=== PATIENT | female | born 1955 | race Caucasian/White ===

== ENCOUNTER 2019-05-06 14:50 | Inpatient (IN) | payer OTHER ==
[2019-05-06 15:40] LABS: MEAN PLT VOLUME 8.8 fl (7.5-11.1)
[2019-05-06 15:42] LABS: BASO % 0.8 % (0-2.0); EOS % 1.8 % (0-4.5); HEMATOCRIT 44.9 % (32.4-45.2); HEMOGLOBIN 15.1 GM/dl (10.7-15.3); LYMPH % 27.2 % (8-40); MCH 31.4 pg (25.7-33.7); MCHC 33.7 g/dl (32.0-36.0); MEAN CELL VOLUME 93.2 fl (80-96); MONO % 5.9 % (3.8-10.2); NEUT % 64.3 % (42.8-82.8); PLATELET COUNT 298 K/MM3 (134-434); RBC 4.81 M/mm3 (3.60-5.2); WHITE BLOOD COUNT 8.4 K/mm3 (4.0-10.8)
[2019-05-06 15:57] LABS: EPITHELIAL CELLS RARE /hpf
[2019-05-06 16:00] LABS: ALBUMIN 4.9 g/dl (3.4-5.0); BILIRUBIN,TOTAL 0.4 mg/dl (0.2-1); CALCIUM 9.6 mg/dl (8.5-10); TOT PROT 8.2 g/dl (6.4-8.2)
[2019-05-06] MEDS ORDERED: MAG HYDROX/AL HYDROX/SIMETH 30 ML UNIT-DOSE CUP PO ONE (16:01)
[2019-05-06] MEDS ORDERED: FAMOTIDINE 20 MG/50 ML IVPB 20 MG/50 ML MG IVPB ONE ×2 (16:01→16:02)
[2019-05-06] MEDS ORDERED: MAG HYDROX/AL HYDROX/SIMETH 30 ML UNIT-DOSE CUP ONE (16:02)
[2019-05-06] MEDS ORDERED: ASPIRIN 81 MG CHEWABLE TABLETS PO ONE (16:29)
[2019-05-06] MEDS ORDERED: NITROGLYCERIN SUBLINGUAL 1/150 0.4 MG TAB SL ONE (16:30)
[2019-05-06] MEDS ORDERED: NITROGLYCERIN SUBLINGUAL 1/150 0.4 MG TAB ONE (16:32)
[2019-05-06] MEDS ORDERED: ASPIRIN 81 MG CHEWABLE TABLETS ONE (16:32)
[2019-05-06] MEDS ORDERED: NITROGLYCERIN 2% OINTMENT - 1GM PACKET TD ONE ×3 (16:36→22:33)
[2019-05-06] MEDS ORDERED: ONDANSETRON 4 MG/2 ML VIAL IVPUSH PRN (16:51)
[2019-05-06] MEDS ORDERED: ACETAMINOPHEN 325 MG TABLET (FP) PO PRN (16:51)
--- NOTE | 2019-05-06 16:53 | PDOC ---
Documentation entered by Suellen Arvizu SCRIBE, acting as scribe for Caden Tse MD. Caden Tse MD: This documentation has been prepared by the Luh medina Xhesika, SCRIBE, under my direction and personally reviewed by me in its entirety. I confirm that the documentation accurately reflects all work, treatment, procedures, and medical decision making performed by me. 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 The patient states her son came over to make amends with her, she got upset, started crying hard and suddenly felt chest pain. Pt notes her pain is persistent, substernal, nonradiating but painful to touch. Patient notes she looked at her fitbit and her HR was initially in the 90s and went up to 130s. Pt notes she had stress test and echocardiogram 2 years ago at her cardiologists office (does not recall name) because she was having palpitations , however, the results came back normal. Pt reports heart disease runs in the family, mother had a triple bypass and stroke. Pt notes she took 2 Motrin at 12pm because she was achy from her fibromyalgia. The patient denies shortness of breath, headache and dizziness. Denies fever, chills, cough, nausea, vomiting, diarrhea and constipation. Denies dysuria, frequency, urgency and hematuria. Allergies: clindamycin, doxycycline, penicillins, sulfamethoxazole, trimethoprim Past History - Past Medical History Allergies/Adverse Reactions: Allergies Allergy/AdvReac Type Severity Reaction Status Date / Time clindamycin Allergy Verified 05/06/19 14:51 doxycycline Allergy Verified 05/06/19 14:51 Penicillins Allergy Verified 05/06/19 14:51 sulfamethoxazole Allergy Verified 05/06/19 14:51 [From Bactrim] trimethoprim [From Bactrim] Allergy Verified 05/06/19 14:51 Home Medications: Ambulatory Orders Amitriptyline HCl 10 mg PO DAILY tablet 02/28/14 Levothyroxine Sodium 88 mcg PO DAILY tablet 02/28/14 Simvastatin 40 mg PO DAILY tablet 02/28/14 Review of Systems - Review of Systems Able to Perform ROS?: Yes Comments:: 05/06/19 15:24 GENERAL/CONSTITUTIONAL: No fever or chills. No weakness. HEAD, EYES, EARS, NOSE AND THROAT: No change in vision. No ear pain or discharge. No sore throat. CARDIOVASCULAR: + chest pain. No shortness of breath. RESPIRATORY: No cough, wheezing, or hemoptysis. GASTROINTESTINAL: No nausea, vomiting, diarrhea or constipation. GENITOURINARY: No dysuria, frequency, or change in urination. MUSCULOSKELETAL: No joint or muscle swelling or pain. No neck or back pain. SKIN: No rash NEUROLOGIC: No headache, vertigo, loss of consciousness, or change in strength/ sensation. ENDOCRINE: No increased thirst. No abnormal weight change. HEMATOLOGIC/LYMPHATIC: No anemia, easy bleeding, or history of blood clots. ALLERGIC/IMMUNOLOGIC: No hives or skin allergy. *Physical Exam - Vital Signs Last Vital Signs Temp Pulse Resp BP Pulse Ox 98.5 F 99 H 18 137/99 99 05/06/19 14:50 05/06/19 16:08 05/06/19 16:08 05/06/19 16:08 05/06/19 16:08 - Physical Exam Comments: 05/06/19 15:24 GENERAL: Awake, alert, and fully oriented, in no acute distress HEAD: No signs of trauma EYES: PERRLA, EOMI, sclera anicteric, conjunctiva clear ENT: Auricles normal inspection, hearing grossly normal, nares patent, oropharynx clear without exudates. Moist mucosa NECK: Normal ROM, supple, no lymphadenopathy, JVD, or masses LUNGS: Breath sounds equal, clear to auscultation bilaterally. No wheezes, and no crackles HEART: +regular tachycardia at 110 bpm and HR 170/111. No murmurs, rubs or gallops ABDOMEN: Soft, nontender, normoactive bowel sounds. No guarding, no rebound. No masses EXTREMITIES: Normal range of motion, no edema. No clubbing or cyanosis. No cords, erythema, or tenderness NEUROLOGICAL: Cranial nerves II through XII grossly intact. Normal speech, normal gait SKIN: Warm, Dry, normal turgor, no rashes or lesions noted. ED Treatment Course - LABORATORY CBC & Chemistry Diagram: 05/06/19 15:32 05/06/19 15:32 - ADDITIONAL ORDERS Additional order review: Laboratory Results 05/06/19 05/06/19 05/06/19 15:47 15:32 15:21 Sodium 138 Potassium 4.0 Chloride 103 Carbon Dioxide 25 Anion Gap 10 BUN 10.0 Creatinine 1.0 Est GFR (CKD-EPI)AfAm 68.47 Est GFR (CKD-EPI)NonAf 59.07 Random Glucose 135 H Calcium 9.6 Total Bilirubin 0.4 AST 30 ALT 31 Alkaline Phosphatase 95 Creatine Kinase 98 Troponin I 0.06 H Total Protein 8.2 Albumin 4.9 Urine Color Yellow Urine Appearance Clear Urine pH 7.0 Urine Protein 1+ H Urine Glucose (UA) Negative Urine Ketones Negative Urine Blood 1+ H Urine Nitrite Negative Urine Bilirubin Negative Urine Urobilinogen 0.2 Ur Leukocyte Esterase 1+ Urine RBC 2-5 Urine WBC 2-5 Ur Transition Epith Cell Rare Urine Bacteria Rare 05/06/19 15:32 RBC 4.81 MCV 93.2 MCHC 33.7 RDW 12.0 MPV 8.8 Neutrophils % 64.3 Lymphocytes % 27.2 Monocytes % 5.9 Eosinophils % 1.8 Basophils % 0.8 - RADIOLOGY Radiology Studies Ordered: Category Date Time Status FABIAN [CHEST X-RAY PORTABLE*] [RAD] Stat Radiology 05/06/19 16:42 Ordered - Medications Given in the ED: ED Medications Discontinued Medications Generic Name Dose Route Start Last Admin Trade Name Freq PRN Reason Stop Dose Admin Al Hydroxide/Mg Hydroxide 30 ml 05/06/19 16:01 05/06/19 16:05 Mylanta Oral Suspension - PO 05/06/19 16:02 30 ml ONCE ONE Administration Aspirin 162 mg 05/06/19 16:29 05/06/19 16:35 Asa - PO 05/06/19 16:30 162 mg ONCE ONE Administration Famotidine/Sodium Chloride 20 mg in 50 mls @ 100 mls/hr 05/06/19 16:01 16:09 Pepcid 20 Mg Premixed Ivpb - IVPB 05/06/19 16:30 100 mls/hr ONCE ONE Administration Lorazepam 0.5 mg 05/06/19 16:54 05/06/19 17:07 Ativan - PO 05/06/19 16:55 Not Given ONCE ONE Nitroglycerin 0.4 mg 05/06/19 16:30 05/06/19 16:41 Nitrostat - SL 05/06/19 16:31 Not Given ONCE ONE Nitroglycerin 0.5 inch 05/06/19 16:39 05/06/19 16:40 Nitro-Bid 2% Paste - TD 05/06/19 16:40 0.5 inch ONCE ONE Administration Medical Decision Making - Medical Decision Making 05/06/19 15:18 EKG shows sinus tachycardia 109 bpm. Normal axes and intervals. No ST-T wave changes. Normal EKG except for the slightly elevated heart rate. This is likely due to the patient's anxiety. Since the patient's pain at its onset during a very emotional confrontation with her son, which resulted in her sobbing uncontrollably, it is likely that symptoms are due to anxiety. Also, it is reassuring that she had a normal stress test and echocardiogram approximately 2 years ago. However, cardiac enzymes will check and patient observed. Her pain seems to be resolving. 05/06/19 17:04 Troponin is 0.06, just slightly out of the negative range. Patient refused sublingual nitro. Refused Ativan. Although the patient's pain is much improved after administration of Pepcid and Mylanta, and it may certainly be gastrointestinal in origin, rule out acute coronary syndrome with serial EKGs and enzymes. Admitted to hospitalist service, Dr. Christina. Telemetry. Repeat EKG and enzymes. Close observation. 05/06/19 17:07 Discharge - Discharge Information Problems reviewed: Yes Clinical Impression/Diagnosis: Acute coronary syndrome - Admission Yes - Follow up/Referral Referrals: Marianne Adkins [Primary Care Provider] - - Patient Discharge Instructions - Post Discharge Activity
[2019-05-06] MEDS ORDERED: LORazepam 0.5 MG TABLET PO ONE (16:54)
[2019-05-06] MEDS ORDERED: LORazepam 0.5 MG TABLET ONE (17:01)
--- NOTE | 2019-05-06 19:12 | PDOC ---
*Physical Exam - Vital Signs Last Vital Signs Temp Pulse Resp BP Pulse Ox 98.5 F 104 H 20 137/98 96 05/06/19 14:50 05/06/19 17:30 05/06/19 17:30 05/06/19 17:30 05/06/19 17:30 ED Treatment Course - LABORATORY CBC & Chemistry Diagram: 05/06/19 15:32 05/06/19 15:32 - ADDITIONAL ORDERS Additional order review: Laboratory Results 05/06/19 05/06/19 05/06/19 15:47 15:32 15:21 Sodium 138 Potassium 4.0 Chloride 103 Carbon Dioxide 25 Anion Gap 10 BUN 10.0 Creatinine 1.0 Est GFR (CKD-EPI)AfAm 68.47 Est GFR (CKD-EPI)NonAf 59.07 Random Glucose 135 H Calcium 9.6 Total Bilirubin 0.4 AST 30 ALT 31 Alkaline Phosphatase 95 Creatine Kinase 98 Troponin I 0.06 H Total Protein 8.2 Albumin 4.9 Urine Color Yellow Urine Appearance Clear Urine pH 7.0 Urine Protein 1+ H Urine Glucose (UA) Negative Urine Ketones Negative Urine Blood 1+ H Urine Nitrite Negative Urine Bilirubin Negative Urine Urobilinogen 0.2 Ur Leukocyte Esterase 1+ Urine RBC 2-5 Urine WBC 2-5 Ur Transition Epith Cell Rare Urine Bacteria Rare 05/06/19 15:32 RBC 4.81 MCV 93.2 MCHC 33.7 RDW 12.0 MPV 8.8 Neutrophils % 64.3 Lymphocytes % 27.2 Monocytes % 5.9 Eosinophils % 1.8 Basophils % 0.8 - Medications Given in the ED: ED Medications Discontinued Medications Generic Name Dose Route Start Last Admin Trade Name Elpidio PRN Reason Stop Dose Admin Al Hydroxide/Mg Hydroxide 30 ml 05/06/19 16:01 05/06/19 16:05 Mylanta Oral Suspension - PO 05/06/19 16:02 30 ml ONCE ONE Administration Aspirin 162 mg 05/06/19 16:29 05/06/19 16:35 Asa - PO 05/06/19 16:30 162 mg ONCE ONE Administration Famotidine/Sodium Chloride 20 mg in 50 mls @ 100 mls/hr 05/06/19 16:01 16:09 Pepcid 20 Mg Premixed Ivpb - IVPB 05/06/19 16:30 100 mls/hr ONCE ONE Administration Lorazepam 0.5 mg 05/06/19 16:54 05/06/19 17:07 Ativan - PO 05/06/19 16:55 Not Given ONCE ONE Nitroglycerin 0.4 mg 05/06/19 16:30 05/06/19 16:41 Nitrostat - SL 05/06/19 16:31 Not Given ONCE ONE Nitroglycerin 0.5 inch 05/06/19 16:39 05/06/19 16:40 Nitro-Bid 2% Paste - TD 05/06/19 16:40 0.5 inch ONCE ONE Administration Medical Decision Making - Medical Decision Making 05/06/19 22:00 Care of this patient received from D-dimer sent because of sustained tachycardia to rule out PE (suggested by LINUS Pizarro of [place] Hospitalist service who had seen the patient earlier) D-dimer mildly elevated at 657 ;CT angiogram of chest ordered Repeat troponin (and INR ) drawn at approximately 9:30 PM Repeat troponin is elevated at 3.44 (INR normal at 1.07) Twelve-lead electrocardiogram will be repeated. Twelve-lead electrocardiogram: Sinus tachycardia at 107 bpm; no ST or T wave abnormality seen. Intervals, axis continued to be normal. No cardiac arrhythmia evident Case discussed with acetylene gas compressor on-call, who requests that patient be admitted to telemetry floor at [facility]. 05/07/19 00:05 CT angiogram of the chest is negative for embolus, infiltrate, pleural effusion or pulmonary nodule The patient has explained to me that she is very sensitive to medications: She refused metoprolol because she has not taken it in the past (clinical indications for beta-velasquez after OR explained to the patient prior to her decision). The only statin drug that she can tolerate is simvastatin. Levothyroxine is tolerated only in the brand of Synthroid. The special considerations have been explained to nurse practitioner Gita Monitored beds are not available at [facility]: Dr. Duran recontacted and situation explained to them. He would still much prefer that patient be admitted to [facility] but if no monitored bed is available, patient can be admitted here (likely will not be seen until late afternoon by acetylene gas compressor) 05/07/19 00:19 Patient has taken her own amitriptyline and simvastatin nighttime doses ( brought from home by family) Discharge - Discharge Information Problems reviewed: Yes Clinical Impression/Diagnosis: NSTEMI (non-ST elevated myocardial infarction) - Admission Yes - Follow up/Referral - Patient Discharge Instructions - Post Discharge Activity
[2019-05-06 21:40] LABS: INR 1.07 (0.82-1.09)
[2019-05-06] MEDS ORDERED: ATORVASTATIN CA 20 MG TABLET (FP) PO SCH (22:00)
[2019-05-06] MEDS ORDERED: ATORVASTATIN CA 20 MG TABLET (FP) ONE ×2 (22:33→23:51)
[2019-05-06] MEDS ORDERED: METOPROLOL TARTRATE 50 MG TABLET (FP) ONE (22:33)
[2019-05-06] MEDS ORDERED: ENOXAPARIN NA (PORCINE) 60 MG/0.6 ML DISP.SYRIN SQ ONE (22:34)
--- NOTE | 2019-05-06 22:53 | HP ---
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 She reports she was crying as she was speaking to her son about past issues at the time the chest pain occurred. She denies radiation of chest pain to her left arm, shoulder, neck or jaw, nausea, vomiting,diaphoresis or shortness of breath. Chest pain is nonreproducible on palpation. She was given topical nitropaste and she reported some relief. Currently she continues to report chest discomfort which has improved and rating 5/10 in intensity. Patient has a positive cardiac family history and she is a former smoker. ER course was notable for: (1) Elevated troponin- 0.06 followed by 3.44, ekg w/ no signs of acute ischemia , no acute ST elevations, consistent with NSTEMI (2) Tachycardia, D-Dimer elevated, CTA of chest completed and pending results (3) Abnormal UA- 1+ leukoesterase, 1+ blood, WBC 2-5 Recent Travel: denies PAST MEDICAL HISTORY: hyperlipidemia fibromylagia hypothyroidism PAST SURGICAL HISTORY: denies Social History: Smoking:former smoker, smoked for about 10 years in her earlier years Alcohol:no Drugs:no Family History: Father had SD in his 50's and CABG in his 70's Mother had aneurysm of heart, at age 58 Allergies clindamycin Allergy (Verified 05/06/19 14:51) doxycycline Allergy (Verified 05/06/19 14:51) Penicillins Allergy (Verified 05/06/19 14:51) sulfamethoxazole [From Bactrim] Allergy (Verified 05/06/19 14:51) trimethoprim [From Bactrim] Allergy (Verified 05/06/19 14:51) HOME MEDICATIONS: Home Medications Medication Instructions Recorded Amitriptyline HCl 10 mg PO DAILY tablet 02/28/14 Levothyroxine Sodium 88 mcg PO DAILY tablet 02/28/14 Simvastatin 40 mg PO DAILY tablet 02/28/14 REVIEW OF SYSTEMS CONSTITUTIONAL: Absent: fever, chills, diaphoresis, generalized weakness, malaise, loss of appetite, weight change HEENT: Absent: rhinorrhea, nasal congestion, throat pain, throat swelling, difficulty swallowing, mouth swelling, ear pain, eye pain, visual changes CARDIOVASCULAR: Absent: chest pain, syncope, palpitations, irregular heart rate, lightheadedness , peripheral edema RESPIRATORY: Absent: cough, shortness of breath, dyspnea with exertion, orthopnea, wheezing, stridor, hemoptysis GASTROINTESTINAL: Absent: abdominal pain, abdominal distension, nausea, vomiting, diarrhea, constipation, melena, hematochezia GENITOURINARY: Absent: dysuria, frequency, urgency, hesitancy, hematuria, flank pain, genital pain MUSCULOSKELETAL: Absent: myalgia, arthralgia, joint swelling, back pain, neck pain SKIN: Absent: rash, itching, pallor HEMATOLOGIC/IMMUNOLOGIC: Absent: easy bleeding, easy bruising, lymphadenopathy, frequent infections ENDOCRINE: Absent: unexplained weight gain, unexplained weight loss, heat intolerance, cold intolerance NEUROLOGIC: Absent: headache, focal weakness or paresthesias, dizziness, unsteady gait, seizure, mental status changes, bladder or bowel incontinence PSYCHIATRIC: Absent: anxiety, depression, suicidal or homicidal ideation, hallucinations. PHYSICAL EXAMINATION Vital Signs - 24 hr 05/06/19 05/06/19 05/06/19 14:50 15:35 16:08 Temperature 98.5 F Pulse Rate 112 H Pulse Rate [ 105 H 99 H Left Apical] Respiratory 20 18 18 Rate Blood Pressure 179/111 H Blood Pressure 159/102 H 137/99 [Right Arm] O2 Sat by Pulse 96 99 99 Oximetry (%) 05/06/19 05/06/19 05/06/19 17:30 20:09 21:15 Temperature 98.8 F Pulse Rate Pulse Rate [ 104 H 104 H Left Apical] Respiratory 20 14 Rate Blood Pressure Blood Pressure 137/98 104/66 [Right Arm] O2 Sat by Pulse 96 99 99 Oximetry (%) GENERAL: awake alert and fully oriented no acute distress HEAD: normal EYES: pupils equal round and reactive to light EARS, NOSE, THROAT: ears normal nares patent, oropharynx clear without exudates NECK: normal LUNGS: breath sounds equal clear to auscultation bilaterally no wheezes and no crackles no accessory muscle use HEART: rate tachycardic and rhythm normal S1 and S2 present ABDOMEN: soft nontender not distended normoactive bowel sounds MUSCULOSKELETAL: normal range of motion at all joints UPPER EXTREMITIES: 2+ pulses warm well-perfused no cyanosis LOWER EXTREMITIES: 2+ pulses warm well-perfused no pitting edema NEUROLOGICAL: normal speech no neuro focal deficits PSYCHIATRIC: cooperative good eye contact appropriate mood and affect SKIN: warm dry normal turgor no rashes or lesions noted Laboratory Results - last 24 hr 05/06/19 05/06/19 05/06/19 15:21 15:25 15:32 WBC RBC Hgb Hct MCV MCH MCHC RDW Plt Count MPV Absolute Neuts (auto) Neutrophils % Lymphocytes % Monocytes % Eosinophils % Basophils % PT with INR INR D-Dimer Sodium 138 Potassium 4.0 Chloride 103 Carbon Dioxide 25 Anion Gap 10 BUN 10.0 Creatinine 1.0 Est GFR (CKD-EPI)AfAm 68.47 Est GFR (CKD-EPI)NonAf 59.07 Random Glucose 135 H Calcium 9.6 Total Bilirubin 0.4 AST 30 ALT 31 Alkaline Phosphatase 95 Creatine Kinase 98 Creatine Kinase Index CK-MB (CK-2) Troponin I Total Protein 8.2 Albumin 4.9 TSH 4.01 H Urine Color Yellow Urine Appearance Clear Urine pH 7.0 Urine Protein 1+ H Urine Glucose (UA) Negative Urine Ketones Negative Urine Blood 1+ H Urine Nitrite Negative Urine Bilirubin Negative Urine Urobilinogen 0.2 Ur Leukocyte Esterase 1+ Urine RBC 2-5 Urine WBC 2-5 Ur Transition Epith Cell Rare Urine Bacteria Rare 05/06/19 05/06/19 05/06/19 15:32 15:47 19:00 WBC 8.4 RBC 4.81 Hgb 15.1 Hct 44.9 MCV 93.2 MCH 31.4 MCHC 33.7 RDW 12.0 Plt Count 298 MPV 8.8 Absolute Neuts (auto) 5.3 Neutrophils % 64.3 Lymphocytes % 27.2 Monocytes % 5.9 Eosinophils % 1.8 Basophils % 0.8 PT with INR INR D-Dimer 637 H Sodium Potassium Chloride Carbon Dioxide Anion Gap BUN Creatinine Est GFR (CKD-EPI)AfAm Est GFR (CKD-EPI)NonAf Random Glucose Calcium Total Bilirubin AST ALT Alkaline Phosphatase Creatine Kinase Creatine Kinase Index CK-MB (CK-2) Troponin I 0.06 H Total Protein Albumin TSH Urine Color Urine Appearance Urine pH Urine Protein Urine Glucose (UA) Urine Ketones Urine Blood Urine Nitrite Urine Bilirubin Urine Urobilinogen Ur Leukocyte Esterase Urine RBC Urine WBC Ur Transition Epith Cell Urine Bacteria 05/06/19 05/06/19 05/06/19 21:25 21:25 21:25 WBC RBC Hgb Hct MCV MCH MCHC RDW Plt Count MPV Absolute Neuts (auto) Neutrophils % Lymphocytes % Monocytes % Eosinophils % Basophils % PT with INR 12.0 INR 1.07 D-Dimer Sodium Potassium Chloride Carbon Dioxide Anion Gap BUN Creatinine Est GFR (CKD-EPI)AfAm Est GFR (CKD-EPI)NonAf Random Glucose Calcium Total Bilirubin AST ALT Alkaline Phosphatase Creatine Kinase 180 Creatine Kinase Index 7.7 H CK-MB (CK-2) 14.0 H Troponin I 3.44 H* Total Protein Albumin TSH Urine Color Urine Appearance Urine pH Urine Protein Urine Glucose (UA) Urine Ketones Urine Blood Urine Nitrite Urine Bilirubin Urine Urobilinogen Ur Leukocyte Esterase Urine RBC Urine WBC Ur Transition Epith Cell Urine Bacteria ASSESSMENT/PLAN: 63 year old obese female with history of thyroid disease,fibromyalgia and hyperlipidemia who presented with midsternal chest. She was found to have an elevated troponin of 0.06 followed by 3.44. EKG with no signs of acute ischemia. Admit to telemetry #1 NSTEMI --Add baby aspirin --Continue with simvastatin 40 mg once daily --Add topical nitropaste 1/2 inch q6hr prn --Add metoprolol tartrate 25mg twice daily for tachycardia --Therapeutic lovenox ordered --Cardiology consulted- Dr. Mcdonald --Echocardiogram ordered to evaluate LV function and exclude wall motion abnormalities --Will keep NPO after midnight in case heart catherization is warranted --Euvolemic on examination #2 Hypothyroidism --TSH -4.01 --Continue with synthroid #3 Hyperlipidemia LFT's normal -- Continue with simvastatin #4 Abnormal UA 1+ leukoesterase, WBC 2-5, 1+ blood, negative nitrite, WBC is normal and afebrile Check urine culture FEN no IV fluids indicated at this time monitor electroytes, repeat BMP in am NPO after midnight DVT Prophylaxis on lovenox Visit type - Emergency Visit Emergency Visit: Yes Care time: The patient presented to the Emergency Department on the above date and was hospitalized for further evaluation of their emergent condition. - New Patient This patient is new to me today: Yes Date on this admission: 05/06/19 - Critical Care Critical Care patient: No
[2019-05-06] MEDS: ENOXAPARIN NA (PORCINE) 60 MG/0.6 ML DISP.SYRIN SQ SCH (23:20)
[2019-05-06] MEDS: METOPROLOL TARTRATE 25 MG TABLET (FP) PO SCH (23:20)
[2019-05-06] MEDS: NITROGLYCERIN 2% OINTMENT - 1GM PACKET TD SCH (23:20)
[2019-05-06] MEDS ORDERED: ATORVASTATIN CA 40 MG TABLET (FP) PO ONE (23:20)
[2019-05-07] MEDS: ENOXAPARIN NA (PORCINE) 60 MG/0.6 ML DISP.SYRIN SQ SCH ×2 (00:02→11:19)
[2019-05-07 00:50] VITALS: BMI 26.6
[2019-05-07] MEDS: NITROGLYCERIN 2% OINTMENT - 1GM PACKET TD SCH ×2 (06:49→11:19)
[2019-05-07] MEDS ORDERED: LEVOTHYROXINE NA 88 MCG TABLET (FP) PO SCH (07:00)
[2019-05-07 07:36] VITALS: BP 103/68; PULSE 83; TEMP 97.8
--- NOTE | 2019-05-07 07:49 | CON.CARD ---
Consult Consult Specialty:: Cardiology Referred by:: Yolanda Naranjo NP Reason for Consultation:: NSTEMI - History of Present Illness Chief Complaint: chest pain History of Present Illness: 63F Fibromyalgia, HLD, strong family hx CAD presents to ER after developing 8/ 10 SSCP after an emotional encounter with son. Patient became emotionally upset , tearful and then developed the chest pressure. Reports no chronic anginal sx; negative MIBI 2 years ago. In ER serial ECGs showed NSST depressions and serial cardiac enzymes + tnI rising. CTA chest done for + D dimer negative for pulm. embolism. Seen and examined: no CP, SOB or PND, palps now. 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: Alzheimer's, CVA, Dementia, Migraine, Multiple Sclerosis, Peripheral Neuropathy, Parkinson's, Seizure, Syncope, TIA, Vertigo, Other Cardio/Vascular: Yes: Hyperlipdemia Pulmonary: No: Asthma, Bronchitis, Cancer, COPD, O2 Dependent, Pneumonia, Previously Intubated, Pulmonary Embolus, Pulmonary Fibrosis, Sleep Apnea, Other Gastrointestinal: No: Ascites, Cancer, Constipation, Crohn's Disease, Diverticulitis, Diverticulosis, Esophageal Varices, Gastritis, GERD, GI Bleed, Hemorrhoids, Hiatal Hernia, Inflamatory Bowel Disease, Irritable Bowel Disease, Pancreatitis, Peptic Ulcer Disease, Ulcerative Colitis, Other Hepatobiliary: No: Cirrhosis, Cholelithiasis, Cholecystitis, Choledocholithiasis , Hepatitis A, Hepatitis B, Hepatitis C, Other Renal/: No: Renal Failure, Renal Inusuff, BPH, Cancer, Hematuria, Hemodialysis , Neurogenic Bladder, Renal Calculi, UTI, Other Reproductive: No: Ectopic , Endometriosis, Fibroids, PID, Polycystic Ovary Syndrome, Postmenopausal, Other ...LMP Comment: 63 YEARS OLD ...: No Heme/Onc: No: Anemia, B12 Deficiency, Bleeding Disorder, Cancer, Current Chemotherapy, Current Radiation Therapy, Hemochromatosis, Hypercoaguable State, Myeloproliferative Synd, Sickle Cell Disease, Sickle Cell Trait, Thrombocytopenia, Other Infectious Disease: No: AIDS, C-Diff, Herpes Zoster, HIV, MRSA, STD's, Tuberculosis, VREF, Other Psych: No: Addictions, Anxiety, Bipolar, Depression, Panic, Psychosis, Schizophrenia, Other Rheumatology: Yes: Fibromyalgia ENT: No: Allergic Rhinitis, Sinusitis, Other Endocrine: Yes: Hypothyroidism Dermatology: No: Basal Cell, Cellulitis, Eczema, Melanoma, Psoriasis, Squamous Cell, Other - Alcohol/Substance Use Hx Alcohol Use: No - Smoking History Smoking history: Never smoked Have you smoked in the past 12 months: No - Social History Usual Living Arrangement: Alone History of Recent Travel: No Home Medications - Allergies Allergies/Adverse Reactions: Allergies Allergy/AdvReac Type Severity Reaction Status Date / Time clindamycin Allergy Verified 05/06/19 14:51 doxycycline Allergy Verified 05/06/19 14:51 Penicillins Allergy Verified 05/06/19 14:51 sulfamethoxazole Allergy Verified 05/06/19 14:51 [From Bactrim] trimethoprim [From Bactrim] Allergy Verified 05/06/19 14:51 - Home Medications Home Medications: Ambulatory Orders Amitriptyline HCl 10 mg PO DAILY tablet 02/28/14 Levothyroxine Sodium 88 mcg PO DAILY tablet 02/28/14 Simvastatin 40 mg PO DAILY tablet 02/28/14 Family Medical History Family History: Unremarkable (Parents both w/ CAD) Review of Systems - Review of Systems Constitutional: reports: No Symptoms Eyes: reports: No Symptoms HENT: reports: No Symptoms Neck: reports: No Symptoms Cardiovascular: reports: Chest Pain Respiratory: reports: No Symptoms, Wheezing Genitourinary: reports: No Symptoms Breasts: reports: No Symptoms Reported Musculoskeletal: reports: No Symptoms Integumentary: reports: No Symptoms Neurological: reports: No Symptoms Endocrine: reports: No Symptoms Hematology/Lymphatic: reports: No Symptoms Psychiatric: reports: No Symptoms - Risk Factors Known Risk Factors: Yes: Family History, Hypercholesterolemia Vital Signs: Vital Signs Temperature 97.8 F 05/07/19 05:00 Pulse Rate 83 05/07/19 05:00 Respiratory Rate 17 05/07/19 05:00 Blood Pressure 103/68 05/07/19 05:00 O2 Sat by Pulse Oximetry (%) 97 05/07/19 07:36 Constitutional: Yes: No Distress, Calm Eyes: Yes: Conjunctiva Clear, EOM Intact HENT: Yes: Atraumatic, Normocephalic Neck: Yes: Supple, Trachea Midline Respiratory: Yes: CTA Bilaterally Gastrointestinal: Yes: Soft Cardiovascular: Yes: Regular Rate and Rhythm JVD: No Carotid Bruit: No PMI: Non-Displaced Heart Sounds: Yes: S1, S2 (rrr, no m/r/g) Edema: No Peripheral Pulses WNL: Yes Neurological: Yes: Alert, Oriented ...Motor Strength: WNL Psychiatric: Yes: Alert, Oriented - Other Data Labs, Other Data: CBC, BMP 05/06/19 15:32 05/06/19 15:32 INR, PTT INR 1.07 (0.82-1.09) 05/06/19 21:25 Troponin, BNP 05/06/19 05/06/19 05/07/19 15:47 21:25 04:00 Troponin I 0.06 H 3.44 H* Cancelled 05/07/19 04:00 Troponin I 2.65 H* Troponin, BNP 05/06/19 05/06/19 05/07/19 15:47 21:25 04:00 Troponin I 0.06 H 3.44 H* Cancelled 05/07/19 04:00 Troponin I 2.65 H* Echo: Pending Imaging - Results Cat Scan: Report Reviewed (st 107, diffuse nsst changes II, III, v5,v6), Image Reviewed EKG: Image Reviewed Assessment/Plan IMP: NSTEMI vs stress induced cardiomyopathy ; CTA neg for PE HLD Hypothyroid REC: 1. ASA , Lovenox. D/W Interventional Cards at [facility] Dr. Lloyd. 2. Plan tx to [facility] for cath. Hold on Plavix for now at Dr. Lloyd's request. Needs definitive assessment coronary anatomy to help optimize and guide further treatment. Patient agrees to transfer and cath plan.
[2019-05-07] MEDS ORDERED: ASPIRIN 81 MG CHEWABLE TABLETS PO SCH (10:00)
[2019-05-07] MEDS ORDERED: AMITRIPTYLINE HCL 10 MG TABLET (FP) PO SCH (10:00)
[2019-05-07] MEDS: METOPROLOL TARTRATE 25 MG TABLET (FP) PO SCH (11:19)
--- NOTE | 2019-05-07 13:38 | DS ---
Physical Exam: SUBJECTIVE: Patient seen and examined. Pt denies CP, sob, fever, chills. OBJECTIVE: Vital Signs Period Temp Pulse Resp BP Sys/Pitts Pulse Ox Last 24 Hr 97.6 F-98.8 F 83-112 14-20 103-179/66-111 95-99 PHYSICAL EXAM GENERAL: The patient is awake, alert, and fully oriented, in no acute distress. HEAD: Normal with no signs of trauma. EYES: PERRL, extraocular movements intact, sclera anicteric, conjunctiva clear. ENT: Ears normal, nares patent, oropharynx clear without exudates, moist mucous membranes. NECK: Trachea midline, full range of motion, supple. LUNGS: Breath sounds equal, clear to auscultation bilaterally, no wheezes, no crackles, no accessory muscle use. HEART: Regular rate and rhythm, S1, S2 ABDOMEN: Soft, nontender, nondistended, normoactive bowel sounds, no guarding, no rebound, no hepatosplenomegaly, no masses. EXTREMITIES: 2+ pulses, warm, well-perfused, no edema. NEUROLOGICAL: Cranial nerves II through XII grossly intact. Normal speech, gait not observed. PSYCH: Normal mood, normal affect. SKIN: Warm, dry, normal turgor, no rashes or lesions noted. LABS Laboratory Results - last 24 hr 05/06/19 05/06/19 05/06/19 15:21 15:25 15:32 WBC RBC Hgb Hct MCV MCH MCHC RDW Plt Count MPV Absolute Neuts (auto) Neutrophils % Lymphocytes % Monocytes % Eosinophils % Basophils % PT with INR INR D-Dimer Sodium 138 Potassium 4.0 Chloride 103 Carbon Dioxide 25 Anion Gap 10 BUN 10.0 Creatinine 1.0 Est GFR (CKD-EPI)AfAm 68.47 Est GFR (CKD-EPI)NonAf 59.07 Random Glucose 135 H Calcium 9.6 Total Bilirubin 0.4 AST 30 ALT 31 Alkaline Phosphatase 95 Creatine Kinase 98 Creatine Kinase Index CK-MB (CK-2) Troponin I Total Protein 8.2 Albumin 4.9 TSH 4.01 H Urine Color Yellow Urine Appearance Clear Urine pH 7.0 Urine Protein 1+ H Urine Glucose (UA) Negative Urine Ketones Negative Urine Blood 1+ H Urine Nitrite Negative Urine Bilirubin Negative Urine Urobilinogen 0.2 Ur Leukocyte Esterase 1+ Urine RBC 2-5 Urine WBC 2-5 Ur Transition Epith Cell Rare Urine Bacteria Rare 05/06/19 05/06/19 05/06/19 15:32 15:47 19:00 WBC 8.4 RBC 4.81 Hgb 15.1 Hct 44.9 MCV 93.2 MCH 31.4 MCHC 33.7 RDW 12.0 Plt Count 298 MPV 8.8 Absolute Neuts (auto) 5.3 Neutrophils % 64.3 Lymphocytes % 27.2 Monocytes % 5.9 Eosinophils % 1.8 Basophils % 0.8 PT with INR INR D-Dimer 637 H Sodium Potassium Chloride Carbon Dioxide Anion Gap BUN Creatinine Est GFR (CKD-EPI)AfAm Est GFR (CKD-EPI)NonAf Random Glucose Calcium Total Bilirubin AST ALT Alkaline Phosphatase Creatine Kinase Creatine Kinase Index CK-MB (CK-2) Troponin I 0.06 H Total Protein Albumin TSH Urine Color Urine Appearance Urine pH Urine Protein Urine Glucose (UA) Urine Ketones Urine Blood Urine Nitrite Urine Bilirubin Urine Urobilinogen Ur Leukocyte Esterase Urine RBC Urine WBC Ur Transition Epith Cell Urine Bacteria 05/06/19 05/06/19 05/06/19 21:25 21:25 21:25 WBC RBC Hgb Hct MCV MCH MCHC RDW Plt Count MPV Absolute Neuts (auto) Neutrophils % Lymphocytes % Monocytes % Eosinophils % Basophils % PT with INR 12.0 INR 1.07 D-Dimer Sodium Potassium Chloride Carbon Dioxide Anion Gap BUN Creatinine Est GFR (CKD-EPI)AfAm Est GFR (CKD-EPI)NonAf Random Glucose Calcium Total Bilirubin AST ALT Alkaline Phosphatase Creatine Kinase 180 Creatine Kinase Index 7.7 H CK-MB (CK-2) 14.0 H Troponin I 3.44 H* Total Protein Albumin TSH Urine Color Urine Appearance Urine pH Urine Protein Urine Glucose (UA) Urine Ketones Urine Blood Urine Nitrite Urine Bilirubin Urine Urobilinogen Ur Leukocyte Esterase Urine RBC Urine WBC Ur Transition Epith Cell Urine Bacteria 05/07/19 05/07/19 04:00 04:00 WBC RBC Hgb Hct MCV MCH MCHC RDW Plt Count MPV Absolute Neuts (auto) Neutrophils % Lymphocytes % Monocytes % Eosinophils % Basophils % PT with INR INR D-Dimer Sodium Potassium Chloride Carbon Dioxide Anion Gap BUN Creatinine Est GFR (CKD-EPI)AfAm Est GFR (CKD-EPI)NonAf Random Glucose Calcium Total Bilirubin AST ALT Alkaline Phosphatase Creatine Kinase Creatine Kinase Index CK-MB (CK-2) Troponin I Cancelled 2.65 H* Total Protein Albumin TSH Urine Color Urine Appearance Urine pH Urine Protein Urine Glucose (UA) Urine Ketones Urine Blood Urine Nitrite Urine Bilirubin Urine Urobilinogen Ur Leukocyte Esterase Urine RBC Urine WBC Ur Transition Epith Cell Urine Bacteria HOSPITAL COURSE: Date of Admission:05/07/19 Date of Discharge: 05/07/19 63 year old obese female with history of thyroid disease,fibromyalgia and hyperlipidemia who presented with midsternal chest. She was found to have an elevated troponin of 0.06 followed by 3.44. EKG with no signs of acute ischemia. Admit to telemetry #1 NSTEMI --baby aspirin --Continue with simvastatin 40 mg once daily --Add topical nitropaste 1/2 inch q6hr prn --Add metoprolol tartrate 25mg twice daily for tachycardia pt refuses to take beta velasquez. pt educated on benefits and still refuses. --Therapeutic lovenox --Cardiology consulted- Seen by Dr. Duran and gave pt permission to have a light breakfast before being transferred to [facility] --Echocardiogram ordered to evaluate LV function and exclude wall motion abnormalities --Euvolemic on examination #2 Hypothyroidism --TSH -4.01 --Continue with synthroid #3 Hyperlipidemia LFT's normal -- Continue with simvastatin #4 Abnormal UA 1+ leukoesterase, WBC 2-5, 1+ blood, negative nitrite, WBC is normal and afebrile Check urine culture FEN no IV fluids indicated at this time monitor electroytes, repeat BMP in am DVT Prophylaxis on lovenox Disposition- Pt is being transferred to [facility] for hear cath. Minutes to complete discharge: 30 Discharge Summary Problems reviewed: Yes Reason For Visit: ACUTE CORONARY SYNDROME Condition: Good - Instructions Referrals: Marianne Adkins [Primary Care Provider] - Disposition: TRANSFER ACUTE CARE/OTHER HOSP - Home Medications Comprehensive Discharge Medication List: Ambulatory Orders Amitriptyline HCl 10 mg PO DAILY tablet 02/28/14 Levothyroxine Sodium 88 mcg PO DAILY tablet 02/28/14 Simvastatin 40 mg PO DAILY tablet 02/28/14 This patient is new to me today: Yes Date on this admission: 05/07/19 Emergency Visit: Yes ED Registration Date: 05/07/19 Care time: The patient presented to the Emergency Department on the above date and was hospitalized for further evaluation of their emergent condition. Critical Care patient: No - Discharge Referral Referred to [facility] No
--- NOTE | 2019-05-07 14:08 | EKG ---
Test Reason : Blood Pressure : / mmHG Vent. Rate : 107 BPM Atrial Rate : 107 BPM P-R Int : 124 ms QRS Dur : 072 ms QT Int : 354 ms P-R-T Axes : 057 069 092 degrees QTc Int : 472 ms SINUS TACHYCARDIA POSSIBLE LEFT ATRIAL ENLARGEMENT NONSPECIFIC ST ABNORMALITY Confirmed by MYKEL RIVAS MD ([id number]) on 05/07/2019 2:08:06 PM Referred By: Physician Emergency Dept Confirmed By:MYKEL RIVAS MD
--- NOTE | 2019-05-07 14:08 | EKG ---
Test Reason : Blood Pressure : / mmHG Vent. Rate : 109 BPM Atrial Rate : 109 BPM P-R Int : 122 ms QRS Dur : 072 ms QT Int : 332 ms P-R-T Axes : 047 049 048 degrees QTc Int : 447 ms SINUS TACHYCARDIA NONSPECIFIC ST ABNORMALITY NO PREVIOUS ECGS AVAILABLE Confirmed by MYKEL RIVAS MD ([id number]) on 05/07/2019 2:08:21 PM Referred By: Physician Emergency Dept Confirmed By:MYKEL RIVAS MD
--- NOTE | 2019-05-10 11:59 | EKG ---
Test Reason : Blood Pressure : / mmHG Vent. Rate : 087 BPM Atrial Rate : 087 BPM P-R Int : 128 ms QRS Dur : 078 ms QT Int : 408 ms P-R-T Axes : 055 062 080 degrees QTc Int : 490 ms NORMAL SINUS RHYTHM NONSPECIFIC T WAVE ABNORMALITY PROLONGED QT ABNORMAL ECG WHEN COMPARED WITH ECG OF 06-MAY-2019 22:14, T WAVE VARIATION Confirmed by KOJO MCQUEEN MD ([id number]) on 05/10/2019 11:59:01 AM Referred By: Physician Emergency Dept Confirmed By:KOJO MCQUEEN MD
== END 2019-05-07 11:05 | disposition short-term general hospital (02) | DRG 282 ==
LOC: FER 14:50 → SUPCPDRO 14:50 → UNDOADMOB 17:26 → FM/S 17:26
PROVIDERS: ADMIT Internal Medicine; ATTEND Nurse Practitioner Acute Care
DX: I21.4 Non-ST elevation (NSTEMI) myocardial infarction (principal); E78.5 Hyperlipidemia, unspecified; M79.7 Fibromyalgia; E03.9 Hypothyroidism, unspecified; R00.0 Tachycardia, unspecified
CPT/HCPCS: 36415; 71045-TC-FY; 71275-TC; 80053; 81003; 81015; 82550; 82553; 84443; 84484; 85025; 85379; 85610; 93005; 99285-25

== ENCOUNTER 2020-05-04 09:35 | Emergency (ER) | payer OTHER | END 2020-05-04 10:12 | disposition home or self-care (01) | LOC: JVIRT 09:35 | DX: Z11.59 Encounter for screening for other viral diseases (principal) | CPT/HCPCS: C9803; Q3014-GT; U0003 ==